=== PATIENT | male | born 1995 | race Two or more races ===

== ENCOUNTER 2025-01-12 09:11 | Outpatient (OUT) | payer OTHER, SELFPAY ==
[2025-01-13 05:10] LABS: Lithium (Eskalith(R)), Serum 0.5 mmol/L (0.5-1.2)
== END 2025-01-12 09:12 | disposition home or self-care (01) ==
LOC: LAB 09:16
PROVIDERS: PCP Nurse Practitioner Primary Care; Visit Provider Nurse Practitioner Primary Care
DX: F63.81 Intermittent explosive disorder (principal); F15.20 Other stimulant dependence, uncomplicated
CPT/HCPCS: 36415; 80178